=== PATIENT | male | born 1960 | race African-American/Black ===

== ENCOUNTER 2019-06-29 05:23 | Inpatient (IN) | payer MEDICAID ==
[~2019-06-29] VITALS: Ht 177.8 cm; Wt 113.2 kg
[~2019-06-29 05:23] MED LIST: ALBU6.7H11 INH; FLOV44 INH; FOLI-43 PO; METF-414 PO; MULT-1146 PO; P20 PO; PROP80CA2 PO; RIVA20TA PO; SIMV-43 PO
[2019-06-29 06:01] LABS: *AMPHETAMINES SCREEN URINE NEGATIVE (NEGATIVE); *BARBITURATES SCREEN URINE NEGATIVE (NEGATIVE)
[2019-06-29 06:02] LABS: *BENZODIAZEPINES SCREEN URINE NEGATIVE (NEGATIVE); *COCAINE SCREEN URINE PRESUMTIVE POSITIVE (NEGATIVE); METHADONE URINE SCREEN NEGATIVE (NEGATIVE); OPIATES URINE SCREEN NEGATIVE (NEGATIVE); PHENCYCLIDINE URINE SCREEN NEGATIVE (NEGATIVE)
[2019-06-29] MEDS ORDERED: BUPIVACAINE HCL 0.5% (5MG/ML) 50ML ONE (06:02)
[2019-06-29 06:03] LABS: CANNABINOID URINE SCREEN NEGATIVE (NEGATIVE)
[2019-06-29] MEDS ORDERED: BACITRACIN 50,000 UNITS/VIAL ONE (06:03)
[2019-06-29] MEDS ORDERED: LACTATED RINGERS 1,000 ML IV SCH (06:20)
[2019-06-29] MEDS ORDERED: SKIN ADHESIVE 0.7 GM EA TOP ONE ×2 (06:27→10:05)
[2019-06-29] MEDS ORDERED: BUPIVACAINE HCL/PF 0.5% (5MG/ML) 10ML ONE (06:28)
[2019-06-29] MEDS ORDERED: INDOCYANINE GREEN 25 MG VIAL IV ONE (06:29)
[2019-06-29] MEDS ORDERED: DILT240C94 PO (06:34)
[2019-06-29] MEDS ORDERED: DIGO125T80 PO (06:34)
[2019-06-29] MEDS ORDERED: FLUT1AER INH (06:36)
[2019-06-29] MEDS ORDERED: PROPOFOL 200MG/20ML VIAL IV ONE (06:46)
[2019-06-29] MEDS ORDERED: FENTANYL CITRATE/PF 50MCG/ML 2ML VIAL ONE ×2 (06:46→09:08)
[2019-06-29] MEDS ORDERED: MIDAZOLAM HCL 2 MG/2 ML VIAL ONE (06:46)
[2019-06-29] MEDS ORDERED: ROCURONIUM BROMIDE 10MG/ML VIAL 5ML IV ONE ×2 (06:46→07:32)
[2019-06-29] MEDS ORDERED: CEFAZOLIN SODIUM 1000MG/VIAL ONE (06:52)
[2019-06-29] MEDS ORDERED: SODIUM CHLORIDE 0.9% 10ML VIAL ONE (06:52)
[2019-06-29] MEDS ORDERED: LEVOFLOXACIN 500MG PREMIX 100 ML IV ONE (06:57)
[2019-06-29] MEDS ORDERED: METRONIDAZOLE 500 MG PREMIX 100 ML IV ONE (07:01)
[2019-06-29] MEDS ORDERED: PRED10TA PO (07:06)
[2019-06-29] MEDS ORDERED: RIVA10TA PO (07:08)
[2019-06-29] MEDS ORDERED: ONDANSETRON HCL 4MG/2ML INJ IV PRN (07:15)
[2019-06-29] MEDS ORDERED: ACETAMINOPHEN 650MG SUPP PR PRN (07:15)
[2019-06-29] MEDS ORDERED: ESMOLOL 2500MG PREMIX 250 ML IV PRN (07:45)
[2019-06-29] MEDS ORDERED: GLYCOPYRROLATE 0.2 MG/ML 2ML VIAL ONE (10:01)
[2019-06-29] MEDS ORDERED: NEOSTIGMINE METHYLSULFATE 1MG/ML 10 ML VIAL ONE (10:01)
[2019-06-29] MEDS ORDERED: FENTANYL CITRATE/PF 50MCG/ML 2ML VIAL IV PRN (11:00)
[2019-06-29] MEDS ORDERED: ONDANSETRON HCL 4MG/2ML INJ IV NR (11:00)
[2019-06-29] MEDS ORDERED: HYDROMORPHONE HCL/PF 2MG/ML CPJ IV PRN (11:00)
[2019-06-29] MEDS: MORPHINE SULFATE 4 MG/ML CPJ (NOT FOR IM USE) IV PRN ×2 (11:11→22:07)
[2019-06-29 13:12] VITALS: BP 126/62
[2019-06-29] MEDS: MORPHINE SULFATE 2 MG/ML CPJ (NOT FOR IM USE) IV PRN (14:34)
[2019-06-29] MEDS: METRONIDAZOLE 500 MG PREMIX 100 ML IV SCH ×2 (15:24→21:54)
[2019-06-29] MEDS: DEXT 5%/0.45% NACL KCL 20MEQ/L 1,000 ML IV SCH (15:24)
[2019-06-29 16:00] VITALS: BP 124/80
[2019-06-29] MEDS ORDERED: NON FORMULARY PATIENT HOME MED XX SCH (16:30)
[2019-06-29] MEDS ORDERED: IPRATROPIUM/ALBUTEROL 0.5-3(2.5)MG/3ML NEB HHN PRN (16:30)
[2019-06-29] MEDS: DIGOXIN 125MCG TABLET PO SCH (17:37)
[2019-06-29 20:00] VITALS: BP 123/72
[2019-06-29] MEDS: FAMOTIDINE 20MG/2ML VIAL IV SCH (21:47)
[2019-06-29] MEDS: ATORVASTATIN CALCIUM 10MG TABLET PO SCH (21:47)
[2019-06-30] VITALS: BP 120/75
[2019-06-30] MEDS: ACETAMINOPHEN 325MG TABLET PO PRN (02:09)
[2019-06-30] MEDS: DEXT 5%/0.45% NACL KCL 20MEQ/L 1,000 ML IV SCH ×2 (02:10→12:22)
[2019-06-30 04:00] VITALS: BP 122/72
[2019-06-30] MEDS: MORPHINE SULFATE 4 MG/ML CPJ (NOT FOR IM USE) IV PRN ×2 (04:52→08:59)
[2019-06-30 05:50] LABS: CHLORIDE 106 mEq/L (98-107)
[2019-06-30] MEDS: METRONIDAZOLE 500 MG PREMIX 100 ML IV SCH (06:01)
[2019-06-30 06:05] LABS: BASOPHILS % 0.5 % (0.0-2.0); EOSINOPHILS % 5.8 % (0.0-5.0); HEMATOCRIT. 26.3 % (42.0-52.0); HEMOGLOBIN. 8.1 g/dL (14.0-18.0); LYMPHOCYTES % 19.1 % (20.0-50.0); MEAN CORPUSCULAR HEMOGLOBIN 20.8 pg (28.0-32.0); MEAN CORPUSCULAR VOLUME 67.5 fL (80.0-94.0); MEAN PLATELET VOLUME 8.5 fl (7.4-10.4); MONOCYTES % 6.8 % (2.0-8.0); NEUTROPHILS % 67.8 % (40.0-76.0); PLATELET 256 x1000/uL (130-400); RED BLOOD CELL COUNT 3.91 mill/uL (4.7-6.1); RED CELL DISTRIBUTION WIDTH 21.3 % (11.6-14.6)
[2019-06-30] MEDS ORDERED: LEVOFLOXACIN 500MG PREMIX 100 ML IV SCH (07:00)
[2019-06-30 08:00] VITALS: BP 111/75
[2019-06-30] MEDS: DILTIAZEM HCL 120MG CAPSULE CD 24HR PO SCH (08:58)
[2019-06-30] MEDS: FAMOTIDINE 20MG/2ML VIAL IV SCH ×2 (08:59→20:45)
[2019-06-30] MEDS: METFORMIN HCL 500MG TABLET PO SCH (08:59)
[2019-06-30 12:00] VITALS: BP 104/71
[2019-06-30] MEDS: IPRATROPIUM BROMIDE (0.02%) 0.5MG/2.5ML NEB HHN PRN (17:39)
[2019-06-30 20:00] VITALS: BP 121/63
[2019-06-30] MEDS: ATORVASTATIN CALCIUM 10MG TABLET PO SCH (20:45)
[2019-06-30] MEDS: MORPHINE SULFATE 2 MG/ML CPJ (NOT FOR IM USE) IV PRN (21:42)
[2019-07-01] VITALS: BP_SYST 145; BP_SYST 165; BP_DIAS 55
[2019-07-01] MEDS: DEXT 5%/0.45% NACL KCL 20MEQ/L 1,000 ML IV SCH ×3 (03:08→20:51)
[2019-07-01] MEDS: MORPHINE SULFATE 2 MG/ML CPJ (NOT FOR IM USE) IV PRN ×4 (03:36→21:50)
[2019-07-01 04:00] VITALS: BP 130/65
[2019-07-01 07:05] LABS: BASOPHILS % 0.5 % (0.0-2.0); EOSINOPHILS % 2.8 % (0.0-5.0); HEMATOCRIT. 24.3 % (42.0-52.0); HEMOGLOBIN. 7.4 g/dL (14.0-18.0); LYMPHOCYTES % 16.1 % (20.0-50.0); MEAN CORPUSCULAR HEMOGLOBIN 20.7 pg (28.0-32.0); MEAN CORPUSCULAR VOLUME 67.6 fL (80.0-94.0); MEAN PLATELET VOLUME 8.4 fl (7.4-10.4); MONOCYTES % 7.4 % (2.0-8.0); NEUTROPHILS % 73.2 % (40.0-76.0); PLATELET 247 x1000/uL (130-400); RED BLOOD CELL COUNT 3.58 mill/uL (4.7-6.1)
[2019-07-01 08:00] VITALS: BP 131/63
[2019-07-01] MEDS: FAMOTIDINE 20MG/2ML VIAL IV SCH ×2 (08:25→20:50)
[2019-07-01] MEDS: DILTIAZEM HCL 120MG CAPSULE CD 24HR PO SCH (08:26)
[2019-07-01] MEDS: METFORMIN HCL 500MG TABLET PO SCH (08:26)
[2019-07-01 08:32] LABS: PLATELET ESTIMATE NORMAL
[2019-07-01 12:00] VITALS: BP 130/77
[2019-07-01] MEDS: MORPHINE SULFATE 4 MG/ML CPJ (NOT FOR IM USE) IV PRN (12:44)
[2019-07-01 16:00] VITALS: BP 117/81
[2019-07-01] MEDS: DIGOXIN 125MCG TABLET PO SCH (17:17)
[2019-07-01 20:00] VITALS: BP 126/91
[2019-07-01] MEDS: ATORVASTATIN CALCIUM 10MG TABLET PO SCH ×2 (20:50→21:00)
[2019-07-02] VITALS (8 sets, daily range): BP systolic 106–166; BP diastolic 57–92
[2019-07-02] MEDS: DEXT 5%/0.45% NACL KCL 20MEQ/L 1,000 ML IV SCH ×3 (03:00→23:48)
[2019-07-02 06:45] LABS: HEMATOCRIT 24.9 % (42.0-52.0); HEMOGLOBIN 7.6 g/dL (14.0-18.0); MEAN CORPUSCULAR HEMOGLOBIN 20.6 pg (28.0-32.0); MEAN CORPUSCULAR VOLUME 67.3 fL (80.0-94.0); PLATELET 275 x1000/uL (130-400); RED CELL DISTRIBUTION WIDTH 21.1 % (11.6-14.6)
[2019-07-02] MEDS: FAMOTIDINE 20MG/2ML VIAL IV SCH ×2 (08:53→23:47)
[2019-07-02] MEDS: DILTIAZEM HCL 120MG CAPSULE CD 24HR PO SCH (08:54)
[2019-07-02] MEDS: METFORMIN HCL 500MG TABLET PO SCH (08:56)
[2019-07-02] MEDS: IPRATROPIUM BROMIDE (0.02%) 0.5MG/2.5ML NEB HHN PRN (09:15)
[2019-07-02] MEDS ORDERED: LACTULOSE 20G/30ML UDC PO SCH (11:45)
[2019-07-02] MEDS: DOCUSATE SODIUM 250MG CAPSULE PO SCH (12:36)
[2019-07-02] MEDS: ATORVASTATIN CALCIUM 10MG TABLET PO SCH (21:00)
[2019-07-02] MEDS: MORPHINE SULFATE 4 MG/ML CPJ (NOT FOR IM USE) IV PRN (23:58)
[2019-07-03] VITALS (7 sets, daily range): BP systolic 119–157; BP diastolic 61–89
[2019-07-03] MEDS: IPRATROPIUM BROMIDE (0.02%) 0.5MG/2.5ML NEB HHN PRN ×2 (02:10→09:50)
[2019-07-03] MEDS: MORPHINE SULFATE 4 MG/ML CPJ (NOT FOR IM USE) IV PRN (05:39)
[2019-07-03] MEDS: DILTIAZEM HCL 120MG CAPSULE CD 24HR PO SCH (08:05)
[2019-07-03] MEDS: METFORMIN HCL 500MG TABLET PO SCH (08:06)
[2019-07-03] MEDS: DOCUSATE SODIUM 250MG CAPSULE PO SCH (08:06)
[2019-07-03] MEDS ORDERED: DEXTROSE 50% WATER 50ML SYRINGE IV PRN (08:30)
[2019-07-03] MEDS: INSULIN LISPRO 100 UNITS/ML SUBCUT SCH ×4 (08:30→21:00)
[2019-07-03] MEDS: DEXT 5%/0.45% NACL KCL 20MEQ/L 1,000 ML IV SCH ×2 (08:34→22:10)
[2019-07-03] MEDS: FAMOTIDINE 20MG/2ML VIAL IV SCH ×2 (08:34→20:59)
[2019-07-03] MEDS: BLOOD SUGAR DIAGNOSTIC STRIP TEST SCH ×4 (09:14→21:00)
[2019-07-03] MEDS: DILTIAZEM HCL 5MG/ML 5ML VIAL IV PRN ×3 (13:18→22:10)
[2019-07-03] MEDS: DIGOXIN 500MCG/2ML AMP IV SCH (17:26)
[2019-07-03] MEDS: BUDESONIDE 0.5MG/2ML NEB HHN SCH (20:59)
[2019-07-04] VITALS (12 sets, daily range): BP systolic 117–153; BP diastolic 60–87
[2019-07-04] MEDS: DEXT 5%/0.45% NACL KCL 20MEQ/L 1,000 ML IV SCH ×2 (05:43→16:52)
[2019-07-04] MEDS: DILTIAZEM HCL 5MG/ML 5ML VIAL IV PRN ×2 (05:44→09:55)
[2019-07-04] MEDS: BLOOD SUGAR DIAGNOSTIC STRIP TEST SCH ×4 (05:55→20:53)
[2019-07-04] MEDS: INSULIN LISPRO 100 UNITS/ML SUBCUT SCH ×4 (06:22→20:53)
[2019-07-04 07:22] LABS: BASOPHILS % 0.4 % (0.0-2.0); EOSINOPHILS % 8.9 % (0.0-5.0); HEMATOCRIT. 24.6 % (42.0-52.0); HEMOGLOBIN. 7.7 g/dL (14.0-18.0); LYMPHOCYTES % 17.1 % (20.0-50.0); MEAN CORPUSCULAR HEMOGLOBIN 21.1 pg (28.0-32.0); MEAN CORPUSCULAR VOLUME 67.1 fL (80.0-94.0); MEAN PLATELET VOLUME 8.1 fl (7.4-10.4); MONOCYTES % 7.8 % (2.0-8.0); NEUTROPHILS % 65.8 % (40.0-76.0); PLATELET 328 x1000/uL (130-400); RED BLOOD CELL COUNT 3.66 mill/uL (4.7-6.1); RED CELL DISTRIBUTION WIDTH 21.1 % (11.6-14.6)
[2019-07-04 07:41] LABS: CHLORIDE 107 mEq/L (98-107)
[2019-07-04] MEDS: FAMOTIDINE 20MG/2ML VIAL IV SCH ×2 (08:35→20:54)
[2019-07-04] MEDS: BUDESONIDE 0.5MG/2ML NEB HHN SCH ×2 (09:20→19:42)
[2019-07-04] MEDS: IPRATROPIUM BROMIDE (0.02%) 0.5MG/2.5ML NEB HHN PRN ×3 (11:28→19:43)
[2019-07-04] MEDS ORDERED: VERAPAMIL HCL 2.5 MG/1 ML 2ML VIAL IV SCH (13:00)
[2019-07-04] MEDS: DIGOXIN 500MCG/2ML AMP IV SCH (17:03)
[2019-07-04 20:00] LABS: PROTHROMBIN TIME 10.9 sec (9.6-11.0)
[2019-07-04] MEDS: ENOXAPARIN 100MG/ML SYR SUBCUT SCH (20:54)
[2019-07-05] VITALS (46 sets, daily range): BP systolic 45–165; BP diastolic 20–101
[2019-07-05] MEDS: DEXT 5%/0.45% NACL KCL 20MEQ/L 1,000 ML IV SCH ×3 (01:39→20:31)
[2019-07-05 06:02] LABS: BASOPHILS % 0.5 % (0.0-2.0); EOSINOPHILS % 8.7 % (0.0-5.0); HEMOGLOBIN. 7.9 g/dL (14.0-18.0); LYMPHOCYTES % 16.8 % (20.0-50.0); MEAN CORPUSCULAR HEMOGLOBIN 20.5 pg (28.0-32.0); MEAN CORPUSCULAR VOLUME 67.9 fL (80.0-94.0); MEAN PLATELET VOLUME 8.2 fl (7.4-10.4); MONOCYTES % 6.2 % (2.0-8.0); NEUTROPHILS % 67.8 % (40.0-76.0); PLATELET 331 x1000/uL (130-400); RED BLOOD CELL COUNT 3.84 mill/uL (4.7-6.1); RED CELL DISTRIBUTION WIDTH 20.6 % (11.6-14.6)
[2019-07-05 06:14] LABS: CHLORIDE 104 mEq/L (98-107)
[2019-07-05] MEDS: BLOOD SUGAR DIAGNOSTIC STRIP TEST SCH ×4 (06:39→20:26)
[2019-07-05] MEDS: INSULIN LISPRO 100 UNITS/ML SUBCUT SCH ×3 (07:20→20:26)
[2019-07-05] MEDS ORDERED: DILTIAZEM HCL 125 MG in DEXT 5% WATER 100 ML IV SCH (08:00)
[2019-07-05] MEDS: IPRATROPIUM BROMIDE (0.02%) 0.5MG/2.5ML NEB HHN PRN (08:08)
[2019-07-05] MEDS: BUDESONIDE 0.5MG/2ML NEB HHN SCH ×2 (08:08→20:39)
[2019-07-05] MEDS: FAMOTIDINE 20MG/2ML VIAL IV SCH ×2 (08:41→20:26)
[2019-07-05] MEDS: ACETAMINOPHEN 325MG TABLET PO PRN (08:41)
[2019-07-05] MEDS: ENOXAPARIN 100MG/ML SYR SUBCUT SCH ×2 (09:00→20:27)
[2019-07-05] MEDS: LOSARTAN POTASSIUM 25 MG TABLET PO SCH (10:56)
[2019-07-05] MEDS ORDERED: MORPHINE SULFATE 2 MG/ML CPJ (NOT FOR IM USE) IV SCH ×2 (11:00→13:30)
[2019-07-05 11:25] LABS: BASOPHILS % 0.5 % (0.0-2.0); EOSINOPHILS % 2.9 % (0.0-5.0); HEMATOCRIT. 31.2 % (42.0-52.0); HEMOGLOBIN. 9.3 g/dL (14.0-18.0); LYMPHOCYTES % 19.1 % (20.0-50.0); MEAN CORPUSCULAR HEMOGLOBIN 20.5 pg (28.0-32.0); MEAN CORPUSCULAR VOLUME 69.3 fL (80.0-94.0); MEAN PLATELET VOLUME 7.8 fl (7.4-10.4); MONOCYTES % 5.2 % (2.0-8.0); NEUTROPHILS % 72.3 % (40.0-76.0); PLATELET 485 x1000/uL (130-400); RED BLOOD CELL COUNT 4.51 mill/uL (4.7-6.1); RED CELL DISTRIBUTION WIDTH 20.9 % (11.6-14.6)
[2019-07-05] MEDS ORDERED: VERAPAMIL HCL 2.5 MG/1 ML 2ML VIAL IV SCH ×4 (12:00→14:00)
[2019-07-05] MEDS ORDERED: SODIUM CHLORIDE 0.9% 250 ML IV SCH ×2 (12:30→13:30)
[2019-07-05 12:42] LABS: BG BASE EXCESS -5.2 mmol/L (-2.0-2.0); BG CARBOXYHEMOGLOBIN 0.3 % (0.5-1.5); BG DEOXYHEMOGLOBIN 1.1 % (0.0-5.0); BG FRACTION INSPIRED OXYGEN 80; BG HCO3 ACT 18.8 mmol/L (22.0-26.0); BG METHEMOGLOBIN 0.2 % (0.0-1.5); BG OXYGEN SATURATION 98.9 % (92.0-98.5); BG OXYHEMOGLOBIN 98.4 % (94.0-97.0); BG PCO2 30.8 mmHg (35.0-45.0); BG PH 7.403 (7.350-7.450); BG PO2 167.2 mmHg (75.0-100.0); BG SAMPLE SITE RIGHT RADIAL; BG TOTAL HEMOGLOBIN 9.3 g/dL (12.0-18.0); BG VENT MODE MASK - SIMPLE
[2019-07-05] MEDS ORDERED: DILTIAZEM HCL 125 MG in DEXT 5% WATER 100 ML IV PRN (12:45)
[2019-07-05] MEDS ORDERED: DIGOXIN 500MCG/2ML AMP IV SCH (12:45)
[2019-07-05] MEDS: IPRATROPIUM BROMIDE (0.02%) 0.5MG/2.5ML NEB HHN SCH ×2 (13:00→20:39)
[2019-07-05] MEDS ORDERED: MORPHINE SULFATE 2 MG/ML CPJ (NOT FOR IM USE) IV PRN (13:30)
[2019-07-05] MEDS ORDERED: METHYLPREDNISOLONE SOD SUCC 125 MG/2 ML VIAL IV SCH (13:45)
[2019-07-05] MEDS ORDERED: METHYLPREDNISOLONE SOD SUCC 125 MG/2 ML VIAL IV ONE (13:45)
[2019-07-05] MEDS ORDERED: ESMOLOL 2500MG PREMIX 250 ML IV SCH (14:00)
[2019-07-05] MEDS ORDERED: ETOMIDATE 2MG/ML 10ML VIAL IV ONE (14:11)
[2019-07-05] MEDS ORDERED: VECURONIUM BROMIDE 10 MG/VIAL IV ONE (14:11)
[2019-07-05] MEDS ORDERED: SODIUM CHLORIDE 0.9% 10ML VIAL ONE (14:11)
[2019-07-05] MEDS ORDERED: FENTANYL CITRATE/PF 1,000 MCG in SODIUM CHLORIDE 0.9% 80 ML IV PRN (14:15)
[2019-07-05] MEDS ORDERED: MIDAZOLAM HCL 100 MG in DEXT 5% WATER 80 ML IV PRN (14:15)
[2019-07-05] MEDS ORDERED: SODIUM BICARBONATE 4% (2.4MEQ) 5ML VIAL IV ONE (14:29)
[2019-07-05] MEDS ORDERED: LIDOCAINE HCL 1% 20ML VIAL (Pyxis) INJ ONE (14:30)
[2019-07-05] MEDS ORDERED: ALBUMIN HUMAN 25GM/500ML (5%) IV SCH (15:00)
[2019-07-05] MEDS: PROPOFOL 10MG/ML 100ML 100 ML IV PRN (15:02)
[2019-07-05 16:55] LABS: BG CARBOXYHEMOGLOBIN 0.3 % (0.5-1.5); BG DEOXYHEMOGLOBIN 0.6 % (0.0-5.0); BG FRACTION INSPIRED OXYGEN 100; BG HCO3 ACT 18.4 mmol/L (22.0-26.0); BG METHEMOGLOBIN 0.3 % (0.0-1.5); BG OXYGEN SATURATION 99.4 % (92.0-98.5); BG OXYHEMOGLOBIN 98.8 % (94.0-97.0); BG PCO2 53.2 mmHg (35.0-45.0); BG PH 7.156 (7.350-7.450); BG PO2 419.4 mmHg (75.0-100.0); BG SAMPLE SITE RIGHT RADIAL; BG TIDAL VOLUME(mL) 500 mL; BG VENT MODE VENT - A/C; BG VENT RATE 18 set
[2019-07-05] MEDS: PHENYLEPHRINE 20 MG in DEXT 5% WATER 248 ML IV PRN ×2 (17:31→20:19)
[2019-07-05] MEDS: DIGOXIN 500MCG/2ML AMP IV SCH (20:25)
[2019-07-05 22:42] LABS: BG BASE EXCESS -10.4 mmol/L (-2.0-2.0); BG CARBOXYHEMOGLOBIN 0.7 % (0.5-1.5); BG DEOXYHEMOGLOBIN 0.3 % (0.0-5.0); BG FRACTION INSPIRED OXYGEN 100; BG HCO3 ACT 15.3 mmol/L (22.0-26.0); BG METHEMOGLOBIN 0.2 % (0.0-1.5); BG OXYGEN SATURATION 99.7 % (92.0-98.5); BG OXYHEMOGLOBIN 98.8 % (94.0-97.0); BG PCO2 33.1 mmHg (35.0-45.0); BG PH 7.284 (7.350-7.450); BG PO2 497.8 mmHg (75.0-100.0); BG SAMPLE SITE LEFT RADIAL; BG TIDAL VOLUME(mL) 550 mL; BG TOTAL HEMOGLOBIN 8.6 g/dL (12.0-18.0); BG VENT MODE VENT - A/C; BG VENT RATE 22 set
[2019-07-05] MEDS ORDERED: SODIUM BICARBONATE 8.4% 1 MEQ/ML 50ML SYR IV NR (23:00)
[2019-07-06] VITALS (97 sets, daily range): BP systolic 52–266; BP diastolic 24–103
[2019-07-06] MEDS: PHENYLEPHRINE 40 MG in DEXT 5% WATER 246 ML IV PRN ×2 (00:20→13:10)
[2019-07-06] MEDS ORDERED: SODIUM CHLORIDE 0.9% 500 ML IV ONE (02:00)
[2019-07-06] MEDS: IPRATROPIUM BROMIDE (0.02%) 0.5MG/2.5ML NEB HHN SCH ×4 (02:11→22:32)
[2019-07-06] MEDS ORDERED: IOHEXOL-350 100 ML BOTTLE ONE (04:35)
[2019-07-06 05:32] LABS: BASOPHILS % 0.2 % (0.0-2.0); EOSINOPHILS % 0.1 % (0.0-5.0); LYMPHOCYTES % 10.6 % (20.0-50.0); MEAN CORPUSCULAR HEMOGLOBIN 20.7 pg (28.0-32.0); MONOCYTES % 4.6 % (2.0-8.0); NEUTROPHILS % 84.5 % (40.0-76.0); PLATELET 263 x1000/uL (130-400); RED BLOOD CELL COUNT 3.85 mill/uL (4.7-6.1); RED CELL DISTRIBUTION WIDTH 20.7 % (11.6-14.6)
[2019-07-06 06:05] LABS: DIGOXIN 0.8 ng/mL (0.9-2.0)
[2019-07-06] MEDS ORDERED: ALBUMIN HUMAN 25GM/500ML (5%) IV SCH (06:30)
[2019-07-06] MEDS: DEXT 5%/0.45% NACL KCL 20MEQ/L 1,000 ML IV SCH ×2 (06:58→17:41)
[2019-07-06 08:20] LABS: BG BASE EXCESS -8.9 mmol/L (-2.0-2.0); BG CARBOXYHEMOGLOBIN 0.6 % (0.5-1.5); BG DEOXYHEMOGLOBIN 7.8 % (0.0-5.0); BG FRACTION INSPIRED OXYGEN 40; BG HCO3 ACT 16.8 mmol/L (22.0-26.0); BG METHEMOGLOBIN 0.3 % (0.0-1.5); BG OXYGEN SATURATION 92.1 % (92.0-98.5); BG OXYHEMOGLOBIN 91.3 % (94.0-97.0); BG PCO2 35.2 mmHg (35.0-45.0); BG PH 7.296 (7.350-7.450); BG PO2 73.5 mmHg (75.0-100.0); BG SAMPLE SITE RIGHT RADIAL; BG TIDAL VOLUME(mL) 550 mL; BG TOTAL HEMOGLOBIN 7.8 g/dL (12.0-18.0); BG VENT MODE VENT - A/C; BG VENT RATE 22 set
[2019-07-06] MEDS: INSULIN LISPRO 100 UNITS/ML SUBCUT SCH ×4 (08:20→21:00)
[2019-07-06] MEDS: BLOOD SUGAR DIAGNOSTIC STRIP TEST SCH ×4 (08:25→21:00)
[2019-07-06] MEDS: ENOXAPARIN 100MG/ML SYR SUBCUT SCH (08:53)
[2019-07-06] MEDS: PROPOFOL 10MG/ML 100ML 100 ML IV PRN (08:54)
[2019-07-06] MEDS: LOSARTAN POTASSIUM 25 MG TABLET PO SCH (09:00)
[2019-07-06] MEDS ORDERED: EPHEDRINE SULFATE 50MG/ML VIAL ONE (09:20)
[2019-07-06] MEDS ORDERED: PHENYLEPHRINE HCL 10 MG/ML 1ML (IV VIAL) IV ONE (09:20)
[2019-07-06] MEDS ORDERED: BUPIVACAINE HCL 0.5% (5MG/ML) 50ML ONE (09:21)
[2019-07-06] MEDS ORDERED: ROCURONIUM BROMIDE 10MG/ML VIAL 5ML IV ONE (09:21)
[2019-07-06] MEDS ORDERED: GLYCOPYRROLATE 0.2 MG/ML 2ML VIAL ONE (09:29)
[2019-07-06] MEDS ORDERED: MIDAZOLAM HCL 2 MG/2 ML VIAL ONE ×2 (09:31→10:39)
[2019-07-06] MEDS ORDERED: LEVOFLOXACIN 500MG PREMIX 100 ML IV ONE (09:36)
[2019-07-06] MEDS ORDERED: ALBUMIN HUMAN 12.5G/250ML (5%) IV ONE (09:38)
[2019-07-06] MEDS ORDERED: BACITRACIN 50,000 UNITS/VIAL ONE ×2 (09:59→10:09)
[2019-07-06] MEDS ORDERED: DEXAMETHASONE 4MG/ML 1ML VIAL ONE ×2 (10:00→10:39)
[2019-07-06] MEDS ORDERED: SODIUM BICARBONATE 4% (2.4MEQ) 5ML VIAL IV ONE ×2 (10:01→13:47)
[2019-07-06] MEDS ORDERED: SODIUM BICARBONATE 8.4% 1 MEQ/ML 50ML SYR IV ONE (10:02)
[2019-07-06] MEDS ORDERED: ONDANSETRON HCL 4MG/2ML INJ ONE (11:33)
[2019-07-06] MEDS: FAMOTIDINE 20MG/2ML VIAL IV SCH ×2 (12:34→23:01)
[2019-07-06] MEDS ORDERED: PROPOFOL 10MG/ML 100ML 100 ML IV PRN (13:45)
[2019-07-06] MEDS ORDERED: LIDOCAINE HCL 1% 20ML VIAL (Pyxis) INJ ONE (13:47)
[2019-07-06 15:03] LABS: BG BASE EXCESS -6.5 mmol/L (-2.0-2.0); BG CARBOXYHEMOGLOBIN 0.3 % (0.5-1.5); BG DEOXYHEMOGLOBIN 2.4 % (0.0-5.0); BG HCO3 ACT 18.3 mmol/L (22.0-26.0); BG METHEMOGLOBIN 0.1 % (0.0-1.5); BG OXYGEN SATURATION 97.6 % (92.0-98.5); BG OXYHEMOGLOBIN 97.2 % (94.0-97.0); BG PCO2 33.6 mmHg (35.0-45.0); BG PH 7.354 (7.350-7.450); BG PO2 114.4 mmHg (75.0-100.0); BG SAMPLE SITE LEFT RADIAL; BG TIDAL VOLUME(mL) 550 mL; BG TOTAL HEMOGLOBIN 8.8 g/dL (12.0-18.0); BG VENT MODE VENT - A/C; BG VENT RATE 22 set
[2019-07-06] MEDS: DIGOXIN 500MCG/2ML AMP IV SCH (17:39)
[2019-07-06] MEDS ORDERED: DOPAMINE 400MG/250ML PREMIX 250 ML IV PRN (20:00)
[2019-07-06] MEDS ORDERED: NOREPINEPHRINE 4 MG in DEXT 5% WATER 246 ML IV PRN (20:00)
[2019-07-06 20:24] LABS: BG BASE EXCESS -19.1 mmol/L (-2.0-2.0); BG CARBOXYHEMOGLOBIN 0.3 % (0.5-1.5); BG DEOXYHEMOGLOBIN 5.1 % (0.0-5.0); BG FRACTION INSPIRED OXYGEN 40; BG HCO3 ACT 8.2 mmol/L (22.0-26.0); BG METHEMOGLOBIN 0.4 % (0.0-1.5); BG OXYGEN SATURATION 94.9 % (92.0-98.5); BG OXYHEMOGLOBIN 94.2 % (94.0-97.0); BG PCO2 24.6 mmHg (35.0-45.0); BG PH 7.142 (7.350-7.450); BG PO2 103.3 mmHg (75.0-100.0); BG SAMPLE SITE RIGHT RADIAL; BG TIDAL VOLUME(mL) 550 mL; BG TOTAL HEMOGLOBIN 7.8 g/dL (12.0-18.0); BG VENT MODE VENT - A/C; BG VENT RATE 22 set
[2019-07-06] MEDS: NOREPINEPHRINE 32 MG in DEXT 5% WATER 468 ML IV PRN (20:30)
[2019-07-06] MEDS ORDERED: DOPAMINE 800MG PREMIX (DOUBLE) 250 ML IV PRN (20:30)
[2019-07-06] MEDS ORDERED: SODIUM BICARBONATE 8.4% 1 MEQ/ML 50ML SYR IV NR (20:45)
[2019-07-06] MEDS: SODIUM BICARBONATE 8.4% 1 MEQ/ML 50ML SYR IV NR ×4 (21:00→22:38)
[2019-07-06 21:32] LABS: HEMATOCRIT. 24.8 % (42.0-52.0); HEMOGLOBIN. 7.2 g/dL (14.0-18.0); MEAN CORPUSCULAR HEMOGLOBIN 20.7 pg (28.0-32.0); MEAN CORPUSCULAR VOLUME 71.3 fL (80.0-94.0); MEAN PLATELET VOLUME 8.7 fl (7.4-10.4); PLATELET 271 x1000/uL (130-400); RED BLOOD CELL COUNT 3.48 mill/uL (4.7-6.1); RED CELL DISTRIBUTION WIDTH 21.1 % (11.6-14.6)
[2019-07-06 22:04] LABS: BG BASE EXCESS -12.9 mmol/L (-2.0-2.0); BG CARBOXYHEMOGLOBIN 0.1 % (0.5-1.5); BG DEOXYHEMOGLOBIN 5.7 % (0.0-5.0); BG FRACTION INSPIRED OXYGEN 40; BG HCO3 ACT 13.8 mmol/L (22.0-26.0); BG METHEMOGLOBIN 0.3 % (0.0-1.5); BG OXYGEN SATURATION 94.3 % (92.0-98.5); BG OXYHEMOGLOBIN 93.9 % (94.0-97.0); BG PCO2 34.4 mmHg (35.0-45.0); BG PO2 90.8 mmHg (75.0-100.0); BG SAMPLE SITE A-LINE; BG TIDAL VOLUME(mL) 550 mL; BG VENT MODE VENT - A/C
[2019-07-06] MEDS: VASOPRESSIN 10 UNIT in SODIUM CHLORIDE 0.9% 99.5 ML IV PRN (22:09)
[2019-07-06] MEDS: PHENYLEPHRINE 80 MG in DEXT 5% WATER 492 ML IV PRN (22:10)
[2019-07-06] MEDS: SODIUM BICARBONATE 150 MEQ in DEXTROSE 5% WATER 850 ML IV SCH (22:10)
[2019-07-06 22:33] LABS: NUCLEATED RED BLOOD CELLS 9 /100 WBC; PLATELET ESTIMATE NORMAL
[2019-07-06 23:16] LABS: BG BASE EXCESS -10.5 mmol/L (-2.0-2.0); BG CARBOXYHEMOGLOBIN 0.3 % (0.5-1.5); BG DEOXYHEMOGLOBIN 3.6 % (0.0-5.0); BG FRACTION INSPIRED OXYGEN 40; BG HCO3 ACT 14.7 mmol/L (22.0-26.0); BG METHEMOGLOBIN 0.3 % (0.0-1.5); BG OXYGEN SATURATION 96.4 % (92.0-98.5); BG OXYHEMOGLOBIN 95.8 % (94.0-97.0); BG PCO2 29.7 mmHg (35.0-45.0); BG PH 7.311 (7.350-7.450); BG PO2 98.1 mmHg (75.0-100.0); BG SAMPLE SITE A-LINE; BG TIDAL VOLUME(mL) 550 mL; BG TOTAL HEMOGLOBIN 9.1 g/dL (12.0-18.0); BG VENT MODE VENT - A/C; BG VENT RATE 26 set
[2019-07-06] MEDS ORDERED: MEROPENEM 1,000 MG in SODIUM CHLORIDE 0.9% 100 ML IV SCH (23:30)
[2019-07-06 23:50] LABS: HEMATOCRIT 26.6 % (42.0-52.0)
[2019-07-06 23:55] LABS: CHLORIDE 104 mEq/L (98-107)
[2019-07-07] VITALS (110 sets, daily range): BP systolic 12–255; BP diastolic -19–106
[2019-07-07] MEDS ORDERED: SODIUM BICARBONATE 8.4% 1 MEQ/ML 50ML SYR IV SCH
[2019-07-07 00:15] LABS: DIGOXIN 1.6 ng/mL (0.9-2.0)
[2019-07-07] MEDS: IPRATROPIUM BROMIDE (0.02%) 0.5MG/2.5ML NEB HHN SCH ×4 (01:04→20:33)
[2019-07-07] MEDS: VASOPRESSIN 10 UNIT in SODIUM CHLORIDE 0.9% 99.5 ML IV PRN ×5 (01:26→21:45)
[2019-07-07] MEDS: MEROPENEM 500 MG in SODIUM CHLORIDE 0.9% 50 ML IV SCH ×2 (03:33→13:30)
[2019-07-07] MEDS: PHENYLEPHRINE 80 MG in DEXT 5% WATER 492 ML IV PRN ×2 (03:34→12:11)
[2019-07-07 05:22] LABS: BG BASE EXCESS -9.2 mmol/L (-2.0-2.0); BG CARBOXYHEMOGLOBIN 0.3 % (0.5-1.5); BG DEOXYHEMOGLOBIN 1.6 % (0.0-5.0); BG FRACTION INSPIRED OXYGEN 4037; BG HCO3 ACT 15.4 mmol/L (22.0-26.0); BG METHEMOGLOBIN 0.3 % (0.0-1.5); BG OXYGEN SATURATION 98.4 % (92.0-98.5); BG OXYHEMOGLOBIN 97.8 % (94.0-97.0); BG PCO2 29.2 mmHg (35.0-45.0); BG PH 7.341 (7.350-7.450); BG PO2 147.9 mmHg (75.0-100.0); BG SAMPLE SITE A-LINE; BG TIDAL VOLUME(mL) 550 mL; BG VENT MODE VENT - A/C; BG VENT RATE 26 set
[2019-07-07 06:07] LABS: CHLORIDE 102 mEq/L (98-107)
[2019-07-07 06:08] LABS: HEMATOCRIT. 30.7 % (42.0-52.0); HEMOGLOBIN. 9.3 g/dL (14.0-18.0); MEAN CORPUSCULAR HEMOGLOBIN 21.9 pg (28.0-32.0); MEAN CORPUSCULAR VOLUME 72.3 fL (80.0-94.0); MEAN PLATELET VOLUME 8.4 fl (7.4-10.4); PLATELET 204 x1000/uL (130-400); RED BLOOD CELL COUNT 4.24 mill/uL (4.7-6.1); RED CELL DISTRIBUTION WIDTH 22.4 % (11.6-14.6)
[2019-07-07 07:21] LABS: ATYPICAL LYMPHOCYTES 1; NUCLEATED RED BLOOD CELLS 16 /100 WBC; PLATELET ESTIMATE NORMAL
[2019-07-07] MEDS: BLOOD SUGAR DIAGNOSTIC STRIP TEST SCH ×4 (07:50→21:00)
[2019-07-07 08:07] LABS: BG BASE EXCESS -12.1 mmol/L (-2.0-2.0); BG CARBOXYHEMOGLOBIN 0.3 % (0.5-1.5); BG DEOXYHEMOGLOBIN 1.8 % (0.0-5.0); BG FRACTION INSPIRED OXYGEN 40; BG HCO3 ACT 11.8 mmol/L (22.0-26.0); BG METHEMOGLOBIN 0.3 % (0.0-1.5); BG OXYGEN SATURATION 98.2 % (92.0-98.5); BG OXYHEMOGLOBIN 97.6 % (94.0-97.0); BG PCO2 22.1 mmHg (35.0-45.0); BG PH 7.346 (7.350-7.450); BG SAMPLE SITE A-LINE; BG TIDAL VOLUME(mL) 550 mL; BG TOTAL HEMOGLOBIN 10.7 g/dL (12.0-18.0); BG VENT MODE VENT - A/C; BG VENT RATE 26 set
[2019-07-07] MEDS: INSULIN LISPRO 100 UNITS/ML SUBCUT SCH ×4 (08:20→21:00)
[2019-07-07] MEDS: LOSARTAN POTASSIUM 25 MG TABLET PO SCH (09:00)
[2019-07-07] MEDS ORDERED: ENOXAPARIN 100MG/ML SYR SUBCUT SCH (09:00)
[2019-07-07] MEDS: FAMOTIDINE 20MG/2ML VIAL IV SCH ×2 (09:39→23:07)
[2019-07-07] MEDS: SODIUM BICARBONATE 150 MEQ in DEXTROSE 5% WATER 850 ML IV SCH (11:09)
[2019-07-07] MEDS: NOREPINEPHRINE 32 MG in DEXT 5% WATER 468 ML IV PRN (16:39)
[2019-07-08] VITALS (19 sets, daily range): BP systolic 3–145; BP diastolic -19–59
[2019-07-08] MEDS: SODIUM BICARBONATE 150 MEQ in DEXTROSE 5% WATER 850 ML IV SCH (00:40)
[2019-07-08] MEDS: IPRATROPIUM BROMIDE (0.02%) 0.5MG/2.5ML NEB HHN SCH (01:54)
[2019-07-08] MEDS ORDERED: SODIUM CHLORIDE 0.9% 1,000 ML IV ONE (02:00)
[2019-07-08] MEDS ORDERED: AMIODARONE HCL 900 MG in DEXT 5% WATER 482 ML IV PRN (02:00)
[2019-07-08] MEDS: MEROPENEM 500 MG in SODIUM CHLORIDE 0.9% 50 ML IV SCH (02:11)
[2019-07-08] MEDS: VASOPRESSIN 10 UNIT in SODIUM CHLORIDE 0.9% 99.5 ML IV PRN (02:15)
[2019-07-08] MEDS: PHENYLEPHRINE 80 MG in DEXT 5% WATER 492 ML IV PRN (03:12)
[2019-07-08] MEDS ORDERED: EPINEPHRINE 1 MG in SODIUM CHLORIDE 0.9% 249 ML IV PRN (03:15)
[2019-07-08 03:19] LABS: BG BASE EXCESS -27.2 mmol/L (-2.0-2.0); BG CARBOXYHEMOGLOBIN 0.3 % (0.5-1.5); BG DEOXYHEMOGLOBIN 9.7 % (0.0-5.0); BG FRACTION INSPIRED OXYGEN 40; BG HCO3 ACT 3.9 mmol/L (22.0-26.0); BG METHEMOGLOBIN 0.8 % (0.0-1.5); BG OXYGEN SATURATION 90.2 % (92.0-98.5); BG OXYHEMOGLOBIN 89.2 % (94.0-97.0); BG PCO2 22.3 mmHg (35.0-45.0); BG PO2 99.7 mmHg (75.0-100.0); BG SAMPLE SITE A-LINE; BG TIDAL VOLUME(mL) 550 mL; BG VENT MODE VENT - A/C; BG VENT RATE 26 set
[2019-07-08] MEDS ORDERED: DEXTROSE 10% WATER 1,000 ML IV SCH (04:15)
[2019-07-08] MEDS ORDERED: SODIUM BICARBONATE 8.4% MEQ/ML 50ML VIAL IV ONE (04:37)
[2019-07-08] MEDS ORDERED: DEXTROSE 50% WATER 50ML VIAL IV ONE (04:37)
[2019-07-08] MEDS ORDERED: EPINEPHRINE 0.1MG/ML (1:10,000) 10ML SYR ONE (04:37)
[2019-07-08] MEDS ORDERED: ATROPINE SULFATE 1MG/10ML SYR ONE (04:37)
[2019-07-08] MEDS ORDERED: CALCIUM CHLORIDE 1GM/10ML SYR IV ONE (04:37)
[2019-07-08] MEDS ORDERED: ENOXAPARIN 120MG/0.8ML SYR SUBCUT SCH (09:00)
== END 2019-07-08 04:37 | disposition expired | DRG 231 ==
LOC: OR 05:23 → 6EST 05:25 → 6WST 07-03 13:08 → 3WST 07-03 18:25 → CVICU 07-05 14:22
PROVIDERS: ADMIT Surgery; ATTEND Surgery
PROC: 8E0W3CZ Robotic Assisted Procedure of Trunk Region, Percutaneous Approach (ICD-10-PCS; 2019-06-29)
PROC: 0DTP4ZZ Resection of Rectum, Percutaneous Endoscopic Approach (ICD-10-PCS; 2019-06-29)
PROC: 5A1945Z Respiratory Ventilation, 24-96 Consecutive Hours (ICD-10-PCS; 2019-07-05)
PROC: 02HV33Z Insertion of Infusion Device into Superior Vena Cava, Percutaneous Approach (ICD-10-PCS; 2019-07-05)
PROC: B548ZZA Ultrasonography of Superior Vena Cava, Guidance (ICD-10-PCS; 2019-07-05)
PROC: 0BH17EZ Insertion of Endotracheal Airway into Trachea, Via Natural or Artificial Opening (ICD-10-PCS; 2019-07-05)
PROC: 5A12012 Performance of Cardiac Output, Single, Manual (ICD-10-PCS; 2019-07-05)
PROC: 0DBN0ZZ Excision of Sigmoid Colon, Open Approach (ICD-10-PCS; 2019-07-06)
PROC: 02HV33Z Insertion of Infusion Device into Superior Vena Cava, Percutaneous Approach (ICD-10-PCS; 2019-07-06)
PROC: B548ZZA Ultrasonography of Superior Vena Cava, Guidance (ICD-10-PCS; 2019-07-06)
PROC: 5A1D70Z Performance of Urinary Filtration, Intermittent, Less than 6 Hours Per Day (ICD-10-PCS; 2019-07-06)
PROC: 0D1M0Z4 Bypass Descending Colon to Cutaneous, Open Approach (ICD-10-PCS; 2019-07-06)
PROC: 30233N1 Transfusion of Nonautologous Red Blood Cells into Peripheral Vein, Percutaneous Approach (ICD-10-PCS; principal; 2019-07-07)
PROC: 5A12012 Performance of Cardiac Output, Single, Manual (ICD-10-PCS; 2019-07-08)
PROC: 5A12012 Performance of Cardiac Output, Single, Manual (ICD-10-PCS; 2019-07-08)
PROC: 5A12012 Performance of Cardiac Output, Single, Manual (ICD-10-PCS; 2019-07-08)
PROC: 5A12012 Performance of Cardiac Output, Single, Manual (ICD-10-PCS; 2019-07-08)
PROC: 5A1D70Z Performance of Urinary Filtration, Intermittent, Less than 6 Hours Per Day (ICD-10-PCS; 2019-07-08)
DX: C18.7 Malignant neoplasm of sigmoid colon (principal); J96.00 Acute respiratory failure, unspecified whether with hypoxia or hypercapnia; I46.9 Cardiac arrest, cause unspecified; K72.00 Acute and subacute hepatic failure without coma; N17.0 Acute kidney failure with tubular necrosis; A41.9 Sepsis, unspecified organism; R65.21 Severe sepsis with septic shock; G93.40 Encephalopathy, unspecified; I95.9 Hypotension, unspecified; C19 Malignant neoplasm of rectosigmoid junction; E87.2 Acidosis; K56.7 Ileus, unspecified; I48.91 Unspecified atrial fibrillation; I11.0 Hypertensive heart disease with heart failure; I50.30 Unspecified diastolic (congestive) heart failure; E11.9 Type 2 diabetes mellitus without complications; E78.5 Hyperlipidemia, unspecified; J45.909 Unspecified asthma, uncomplicated; D64.9 Anemia, unspecified; E87.5 Hyperkalemia; Z60.2 Problems related to living alone; I42.9 Cardiomyopathy, unspecified; R74.0 Nonspecific elevation of levels of transaminase and lactic acid dehydrogenase [LDH]; Z80.0 Family history of malignant neoplasm of digestive organs; K91.89 Other postprocedural complications and disorders of digestive system; Y83.6 Removal of other organ (partial) (total) as the cause of abnormal reaction of the patient, or of later complication, without mention of misadventure at the time of the procedure; Y92.234 Operating room of hospital as the place of occurrence of the external cause
CPT/HCPCS: 36415; 36600; 71045; 71275; 74018; 74176; 76937; 80048; 80051; 80053; 80162; 80305; 82330; 82375; 82805; 82962; 83036; 83735; 84100; 84478; 85014; 85018; 85025; 85027; 86850; 86900; 86920; 87070; 87075; 87077; 87106; 87186; 88307; 88309; 88329; 93005; 93306; 94003; 94640; 97116; 97162; C1725; C1752; J0461; J0690; J1100; J1160; J1265; J1642; J1650; J1815; J1956; J2185; J2250; J2270; J2370; J2405; J2704; J2710; J2930; J3010; J3490; J7050; J7060; J7070; J7626; P9016; P9041; Q9957; Q9967